=== PATIENT | male | born 1995 | race Caucasian/White ===

== ENCOUNTER 2019-05-09 11:39 | Emergency (ER) | payer BC, MEDICAID ==
[2019-05-09 11:57] VITALS: BP 120/76
--- NOTE | 2019-05-09 12:52 | ER Document Report ---
HPI - HPI Time Seen by Provider: 05/09/19 12:44 Notes: Patient is a 24-year-old male presenting to the emergency department with concern for possible insect bite 2 days ago. He denies any drainage from the area. He denies any fevers or other concerns. Past Medical History - General Information source: Patient - Social History Smoking Status: Never Smoker Frequency of alcohol use: None Drug Abuse: None Family History: Reviewed & Not Pertinent - Medical History Medical History: Negative Surgical Hx: Negative - Immunizations Immunizations up to date: Yes Vertical Provider Document - CONSTITUTIONAL Notes: PHYSICAL EXAMINATION: GENERAL: Well-appearing, well-nourished and in no acute distress. HEAD: Atraumatic, normocephalic. EYES: Pupils equal round extraocular movements intact, conjunctiva are normal. ENT: Nares patent NECK: Normal range of motion LUNGS: No respiratory distress Musculoskeletal: Normal range of motion NEUROLOGICAL: Normal speech, normal gait. PSYCH: Normal mood, normal affect. SKIN: Erythema noted to left lower extremity, no induration or fluctuance noted. Course - Re-evaluation Re-evalutation: Patient has at this point what appears to be early cellulitis to his right lower extremity. No induration or fluctuance noted, no evidence of abscess to be drained at this point. I will start patient on antibiotics and give him appropriate discharge instructions on what to return for. Patient verbalizes understanding and agreement with this plan. The patient's emergency department workup and current diagnosis were explained to the patient and or family. Follow-up instructions were provided. Medications if prescribed were discussed. Instructions for when to return to the emergency department including specific worrisome symptoms were discussed with the patient and/or family. - Vital Signs Vital signs: Temp Pulse Resp BP Pulse Ox 97.7 F 77 18 120/76 100 05/09/19 11:55 05/09/19 11:55 05/09/19 11:55 05/09/19 11:55 05/09/19 11:55 Discharge - Discharge Clinical Impression: Cellulitis Qualifiers: Site of cellulitis: extremity Site of cellulitis of extremity: lower extremity Laterality: right Qualified Code(s): L03.115 - Cellulitis of right lower limb Condition: Stable Disposition: HOME, SELF-CARE Additional Instructions: Please take the antibiotics as prescribed. Watch the area closely for increased signs of infection such as development of fever, increased redness, increased pain, swelling or development of an area that is soft and looks like it should be drained. If any of these occur please return to the emergency department. Prescriptions: Sulfamethoxazole/Trimethoprim [Bactrim Ds Tablet] 1 tab PO BID #14 tablet Forms: Return to Work
== END 2019-05-09 12:56 | disposition home or self-care (01) ==
LOC: ER 11:39
DX: L03.115 Cellulitis of right lower limb (principal)
CPT/HCPCS: 99283; A6266